=== PATIENT | male | born 1990 | race Caucasian/White ===

== ENCOUNTER 2019-10-09 08:30 | Outpatient (RCR) | payer MEDICARE, MEDICAID, SELFPAY | END 2019-10-12 23:59 | LOC: DC 08:30 | PROVIDERS: PCP Internal Medicine; Visit Provider Nurse Practitioner Primary Care | DX: Z71.3 Dietary counseling and surveillance (principal); E11.9 Type 2 diabetes mellitus without complications; E66.01 Morbid (severe) obesity due to excess calories; Z68.43 Body mass index [BMI] 50.0-59.9, adult | CPT/HCPCS: 97802; 97803; G0108 ==

== ENCOUNTER 2019-10-21 15:07 | Outpatient (RCR) | payer MEDICARE, MEDICAID, SELFPAY | END 2019-11-12 23:59 | LOC: NS 15:07 | PROVIDERS: PCP Internal Medicine; Visit Provider Nurse Practitioner Primary Care | DX: Z71.3 Dietary counseling and surveillance (principal); E11.9 Type 2 diabetes mellitus without complications; E66.01 Morbid (severe) obesity due to excess calories; Z68.43 Body mass index [BMI] 50.0-59.9, adult | CPT/HCPCS: 97803 ==

== ENCOUNTER 2019-11-20 08:30 | Outpatient (RCR) | payer MEDICARE, MEDICAID, SELFPAY | END 2019-12-12 23:59 | LOC: DC 08:30 | PROVIDERS: PCP Internal Medicine; Visit Provider Nurse Practitioner Primary Care | DX: Z71.3 Dietary counseling and surveillance (principal); E66.01 Morbid (severe) obesity due to excess calories; Z68.43 Body mass index [BMI] 50.0-59.9, adult | CPT/HCPCS: 97803; G0108 ==

== ENCOUNTER 2019-12-31 16:37 | Outpatient (RCR) | payer MEDICARE, MEDICAID, SELFPAY | END 2020-01-12 23:59 | LOC: NS 16:37 | PROVIDERS: PCP Internal Medicine; Visit Provider Nurse Practitioner Primary Care | DX: Z71.3 Dietary counseling and surveillance (principal); E66.01 Morbid (severe) obesity due to excess calories; Z68.43 Body mass index [BMI] 50.0-59.9, adult; E11.9 Type 2 diabetes mellitus without complications | CPT/HCPCS: 97803 ==

== ENCOUNTER 2020-01-21 14:25 | Outpatient (RCR) | payer MEDICARE, MEDICAID, SELFPAY | END 2020-01-21 23:59 | disposition home or self-care (01) | LOC: NS 14:25 | PROVIDERS: PCP Internal Medicine; Visit Provider Nurse Practitioner Primary Care | DX: Z71.3 Dietary counseling and surveillance (principal); E66.01 Morbid (severe) obesity due to excess calories; E11.9 Type 2 diabetes mellitus without complications; Z68.43 Body mass index [BMI] 50.0-59.9, adult | CPT/HCPCS: 97803 ==

== ENCOUNTER 2023-03-06 17:30 | Outpatient (RCR) | payer SELFPAY | END 2023-03-13 23:59 | LOC: NS 17:30 | PROVIDERS: PCP Internal Medicine | DX: Z71.3 Dietary counseling and surveillance (principal); E11.9 Type 2 diabetes mellitus without complications ==

== ENCOUNTER 2024-09-07 12:18 | Emergency (ER) | payer MEDICARE, MEDICAID, SELFPAY ==
[2024-09-07 12:19] VITALS: BP 152/89; PULSE 104; RESP 18; TEMP 36.9; O2SAT 98; BMI 47.1
--- NOTE | 2024-09-07 12:34 | EDS_ITS ---
HPI <ELBERT Mcdonald - Last Filed: 09/07/24 14:25> History of Present Illness Chief Complaint: Bite Narrative Narrative: 33-year-old male was cleaning his elderly family dog's nose yesterday when she bit his hand. He has a puncture wound on the palm and more superficial puncture wounds on the back of the hand. 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 He woke up and had swelling and was brought in by a family member for evaluation. His family member states she is a physician and was concerned with the degree of swelling that he could have developed flexor tenosynovitis. He denies pain or fever chills or drainage from the area. Patient is right-hand dominant. PFS <ELBERT Mcdonald - Last Filed: 09/07/24 14:25> [facility] Medical History (Updated 09/07/24 @ 14:[address] Marcial Quintero, DO) HTN (hypertension) Epilepsy Home Medications ?Medication ?Instructions ?Recorded ?Last Taken ?Type amoxicillin 875 mg-potassium 1 tab PO BID 7 days #14 tabs 09/07/24 Unknown Rx clavulanate 125 mg tablet atorvastatin 80 mg tablet 80 mg PO DAILY 09/07/24 Unknown History fluticasone propionate 50 1 spray intranasal DAILY PRN ALLERG 09/07/24 Unknown History mcg/actuation nasal spray,suspension (24 Hour Allergy Relief) hydrochlorothiazide 25 mg tablet 25 mg PO DAILY 09/07/24 Unknown History levetiracetam 500 mg tablet 1,000 mg PO BID 09/07/24 Unknown History lisinopril 40 mg tablet 40 mg PO DAILY 09/07/24 Unknown History metformin 1,000 mg tablet 1,000 mg PO BID 09/07/24 Unknown History metoprolol tartrate 100 mg tablet 100 mg PO BID 09/07/24 Unknown History Allergy/AdvReac Type Severity Reaction Status Date / Time No Known Allergies Allergy Verified 09/07/24 12:19 Social History Smoking Status: Former smoker ROS <ELBERT Mcdonald - Last Filed: 09/07/24 14:25> ROS ED ROS Narrative Constitutional: Negative for fever, chills, malaise. Neuro: Negative for motor/sensory dysfunction. Skin: Positive for puncture wounds. EXAM <ELBERT Mcdonald - Last Filed: 09/07/24 14:25> Physical Exam Narrative Exam Narrative: CONST: Patient sitting in no acute distress. EYES: Normal inspection. NECK: Normal inspection. SKIN: Puncture wound left mid palm, 2 superficial puncture wounds on the dorsal hand. There is localized swelling and erythma over these areas without warmth or tenderness. The swelling and erythema do NOT extend to his digits. No pain with movement of the elbow wrist hand or digits. No lymphangitic streaking, no fluctuance or crepitus. Normal motor and sensory function in median radial and ulnar distributions, 2+ radial pulse and brisk cap refill. EXTREMITIES: Normal appearance, no pedal edema. NEURO: Alert and answering questions appropriately. PSYCH: Normal affect. Const Vital Signs: 09/07/24 12:19 Temperature 98.4 F Temperature Source Temporal Pulse Rate 104 H Respiratory Rate 18 Blood Pressure 152/89 H Blood Pressure Mean 110 Pulse Ox 98 Oxygen Delivery Method Room Air <Dr. Marcial Quintero DO - Last Filed: 09/07/24 14:23> Physical Exam Const Vital Signs: 09/07/24 12:19 Temperature 98.4 F Temperature Source Temporal Pulse Rate 104 H Respiratory Rate 18 Blood Pressure 152/89 H Blood Pressure Mean 110 Pulse Ox 98 Oxygen Delivery Method Room Air MDM <Yris Bird PA - Last Filed: 09/07/24 14:25> [facility] MDM Narrative Medical decision making narrative: History gathered from: Patient, family member Differential: Dog bite, cellulitis, abscess, fracture 33-year-old male has dog bite puncture wounds to his left hand that occurred yesterday. This morning he developed swelling prompting his family member to bring him in for evaluation. He is awake and alert in no distress. Heart rate is 104 with otherwise normal vital signs. He has localized swelling over the dorsal hand over the area of the puncture wounds. All sites are clean in appearance without signs of cellulitis or abscess. He has full range of motion without pain and is neurovascular intact. Clinically I am not concerned for flexor tenosynovitis. X-ray shows no fracture or retained teeth fragments. I ordered tetanus and the first dose of Augmentin with wound care instructions and return precautions. Patient was discharged in stable condition. ED attending interpretation of left hand shows no fracture or dislocation, no retained foreign body. Radiography Diagnostic Testing: Clinical Impression(s) from Imaging Studies Hand X-Ray 09/07/24 12:56 IMPRESSION: Soft tissue swelling. No visible foreign body or bone or joint acute finding. Electronically Signed: Lisa Kauffman MD at 14:10 EST , <Dr. aMrcial Quintero, DO - Last Filed: 09/07/24 14:23> MDM Radiography Diagnostic Testing: Clinical Impression(s) from Imaging Studies Hand X-Ray 09/07/24 12:56 IMPRESSION: Soft tissue swelling. No visible foreign body or bone or joint acute finding. Electronically Signed: Lisa Kauffman MD at 14:10 EST , Treatment and Re-Evaluation :: I have personally performed a face to face assessment of the patient and have reviewed the NURA Note. I performed a substantive portion of the visit including all aspects of the following. My wilson findings include: History: Patient presents with redness and swelling to his left hand that began last night. Patient states that his dog bit him yesterday morning. 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 Patient states the swelling has gotten worse today. Patient describes his pain as dull. Elbert veronica denies any paresthesias or weakness. Patient is unsure of his last tetanus. Exam: Vital signs are stable except for mildly elevated blood pressure 152/89. Patient is afebrile. Patient is in no acute distress. Musculoskeletal exam reveals tenderness, edema, and erythema over the second and third metacarpal areas of the left hand on the palmar and dorsal surface. There is a puncture wound on the palmar surface over the third metacarpal. There are 2 superficial wounds on the dorsal aspect of the left hand over the third metacarpal. There is no active discharge or drainage. There is no fluctuance. There is no fusiform swelling of the second and third digits. There is no pain with passive extension. Sensation was intact to light touch in all digits. Capillary refills less than 2 seconds in all digits. Medical Decision Making: Differential diagnosis includes occult fracture, cellulitis, and wound infection. X-rays of the left hand will be obtained to assess for occult fracture. Patient was given a tetanus booster. Patient was given a dose of Augmentin. X-rays of the left hand were obtained. There are 3 views. On my independent interpretation, there is no acute fracture or radiopaque foreign body. There is no soft tissue gas or evidence of osteomyelitis. There is some mild soft tissue swelling. Radiologist also interpreted the x-rays and agrees. Patient was advised of his findings. Patient was given a prescription for Augmentin. Patient was instructed to keep the wound clean and dry. Patient was given restrictions for work. Patient was instructed to follow-up with his primary care physician in 5 to 7 days. Patient understood and was agreeable with the plan. All questions were answered. Discharge Plan Triage Chief Complaint: Bite ED Midlevel Provider: Yris Bird ED Provider: Marcial Quintero Dx/Rx/DC Orders Clinical Impression: Dog bite of left hand, Cellulitis of left hand Instructions: ED Animal Bite (General) Prescriptions: New amoxicillin-pot clavulanate 875-125 mg tablet 1 tab PO BID 7 Days Qty: 14 0RF No Action atorvastatin 80 mg tablet 80 mg PO DAILY metoprolol tartrate 100 mg tablet 100 mg PO BID levetiracetam 500 mg tablet 1,000 mg PO BID metformin 1,000 mg tablet 1,000 mg PO BID hydrochlorothiazide 25 mg tablet 25 mg PO DAILY lisinopril 40 mg tablet 40 mg PO DAILY fluticasone propionate [24 Hour Allergy Relief] 50 mcg/actuation spray,suspension 1 spray intranasal DAILY PRN (Reason: ALLERG) Rx Instructions: administer into each nostril Primary Care Provider: MELISSA LOPEZ Referrals: Christin Mireles MD [Med Staff - Munitions Handler Supervisor] - Activity Restrictions/Additional Instructions: Take all of the antibiotics as prescribed. Take Tylenol or ibuprofen as needed for pain. If you develop worsening swelling of your hand, redness that spreading up your arm, fever or worsening pain please come back to the emergency room. Print Language: [place] Disposition Disposition: Home, Self Care
[2024-09-07] MEDS: Amox/Clavulanate 875 MG Tablet PO (12:49)
[2024-09-07] MEDS: Diphth,Pertuss(Acell),Tet Vac 0.5 ML Vial IM (12:52)
--- NOTE | 2024-09-07 12:56 | RAD_ITS ---
EXAM: XR LEFT HAND COMPLETE, 3 OR MORE VIEWS CLINICAL INDICATION: dog bite TECHNIQUE: Frontal, lateral and oblique views of the left hand. COMPARISON: No relevant prior studies available. FINDINGS: BONES/JOINTS: Unremarkable. No acute fracture. No subluxation. Normal alignment. Preservation of the joint space. No sclerotic or destructive changes observed. SOFT TISSUES: Mild dorsal hand soft tissue swelling best seen on lateral view. No radiopaque foreign body. Also soft tissue swelling at the proximal second through fourth digits and the palmar surface of the hand. RAD/Hand Min 3 Views IMPRESSION: Soft tissue swelling. No visible foreign body or bone or joint acute finding. Electronically Signed: Lisa Kauffman MD at 14:10 EST ,
[2024-09-07 14:35] VITALS: BP 125/67; PULSE 71; RESP 15; TEMP 36.1; O2SAT 99
== END 2024-09-07 14:36 | disposition home or self-care (01) ==
PROVIDERS: Emergency Provider Emergency Medicine; PCP Nurse Practitioner; Visit Provider Emergency Medicine
DX: S60.572A Other superficial bite of hand of left hand, initial encounter (principal); L03.114 Cellulitis of left upper limb; I10 Essential (primary) hypertension; Z87.891 Personal history of nicotine dependence; Z79.899 Other long term (current) drug therapy; Z23 Encounter for immunization
CPT/HCPCS: 73130; 90471; 90715; 99282